=== PATIENT | male | born 1965 | race Caucasian/White ===

== ENCOUNTER → 2020-08-08 15:56 | Outpatient (CLI) | payer BC, SELFPAY ==
--- NOTE | 2020-08-08 | DI.US.S_ITS ---
PROCEDURE: US SCROTUM INDICATIONS: Retention of urine, unspecified TECHNIQUE: Real-time scanning was performed of the scrotum and testicles, with image documentation. Color and pulse Doppler interrogation was performed of both testicles. COMPARISON: None. FINDINGS: Right: Testicle is normal in size at 5.1 x 2.5 x 3.2 cm, and homogenous in echotexture. Epididymis is normal in overall size and morphology. Right epididymal cyst measuring 5 mm. No hydrocele or varicoceles. Overlying scrotal skin is normal in thickness. Left: Testicle is normal in size at 4.8 x 2.4 x 3.1 cm, and homogeneous in echotexture. Epididymis is normal in overall size and morphology. No hydrocele or varicoceles. Overlying scrotal skin is normal in thickness. Doppler: Color and pulse Doppler demonstrate normal and symmetric arterial flow in both testicles. IMPRESSION: Right epididymal cyst; otherwise normal appearance of the testicles bilaterally. Dictated by: Lawson Parker [facility] Interpreted: Vel Parsons MD on 08/08/2020 at 16:45 Approved by: Vel Parsons M.D. on 08/08/2020 at 17:02
== END ==
PROVIDERS: PCP Family Medicine; Referring Provider Urology; Visit Provider Urology
DX: R39.9 Unspecified symptoms and signs involving the genitourinary system (principal); R33.9 Retention of urine, unspecified; N50.3 Cyst of epididymis
CPT/HCPCS: 76870